=== PATIENT | male | born 1940 | race Caucasian/White ===

== ENCOUNTER → 2016-08-23 | Outpatient (CLI) | payer MEDICARE, BC, OTHER ==
[2016-08-24 08:53] LABS: PROSTATE SPECIFIC ANTIGEN 6.8 ng/mL (0.0-4.0); PSA % FREE 11.9 % (.); PSA FREE 0.81 ng/mL
== END ==
LOC: OD 11:39
PROVIDERS: ATTEND Urology
DX: R97.20 Elevated prostate specific antigen [PSA] (principal)
CPT/HCPCS: 36415; 84154

== ENCOUNTER → 2017-02-06 | Outpatient (CLI) | payer MEDICARE, BC, OTHER ==
[2017-02-07 07:50] LABS: PROSTATE SPECIFIC ANTIGEN 7.4 ng/mL (0.0-4.0); PSA % FREE 10.3 % (.); PSA FREE 0.76 ng/mL
== END ==
LOC: OD 10:43
PROVIDERS: ATTEND Urology
DX: R97.20 Elevated prostate specific antigen [PSA] (principal)
CPT/HCPCS: 36415; 84154